=== PATIENT | female | born 1940 | race Caucasian/White ===

== ENCOUNTER → 2017-05-27 | Day surgery (SDC) | payer OTHER | END | disposition home or self-care (01) | LOC: ADM 05-20 11:45 → AMB-ENDOS 06:15 | DX: K57.32 Diverticulitis of large intestine without perforation or abscess without bleeding (principal) ==

== ENCOUNTER 2019-12-06 14:00 | Emergency (ER) | payer OTHER ==
[~2019-12-06] VITALS: Ht 165.1 cm; Wt 78.0 kg
[2019-12-06] MEDS ORDERED: AZELASTINE137 MCG/0. NASAL (14:18)
[2019-12-06] MEDS ORDERED: GABAPENTIN100 M2 PO (14:18)
[2019-12-06] MEDS ORDERED: FLONASE16 GM NS (14:18)
[2019-12-06] MEDS ORDERED: FAMOTIDINE20 MG PO (14:18)
[2019-12-06] MEDS ORDERED: PANTOPRAZOLE SO40 MG PO (14:19)
[2019-12-06] MEDS ORDERED: CANDESARTAN-HC1 EAC2 PO (14:19)
[2019-12-06] MEDS ORDERED: APETIGEN-PLUS1 EACH PO (21:58)
[2019-12-06] MEDS ORDERED: ENZYME DIGEST1 EACH PO (21:58)
[2019-12-06] MEDS ORDERED: PEPCID AC20 MG PO (21:58)
[2019-12-06] MEDS ORDERED: MOTION RELIEF25 MG PO (21:58)
== END 2019-12-06 22:21 ==
LOC: ER 14:00
DX: H81.13 Benign paroxysmal vertigo, bilateral (principal); R00.2 Palpitations; R06.02 Shortness of breath; Z03.818 Encounter for observation for suspected exposure to other biological agents ruled out

== ENCOUNTER 2024-02-11 06:36 | Emergency (ER) | payer OTHER ==
[~2024-02-11] VITALS: Ht 152.4 cm; Wt 72.6 kg
[~2024-02-11 06:36] MED LIST: APETIGEN-PLUS1 EACH PO; AZELASTINE137 MCG/0. NASAL; CANDESARTAN-HC1 EAC2 PO; ENZYME DIGEST1 EACH PO; FAMOTIDINE20 MG PO; FLONASE16 GM NS; GABAPENTIN100 M2 PO; MOTION RELIEF25 MG PO; PANTOPRAZOLE SO40 MG PO; PEPCID AC20 MG PO
== END 2024-02-11 12:07 ==
LOC: ER 06:38
DX: R51.9 Headache, unspecified (principal); H40.89 Other specified glaucoma; Z88.0 Allergy status to penicillin; I10 Essential (primary) hypertension; K57.30 Diverticulosis of large intestine without perforation or abscess without bleeding

== ENCOUNTER 2024-08-23 12:15 | Outpatient (CLI) | payer OTHER | END 2024-08-23 12:19 | disposition home or self-care (01) | LOC: SONOGRAMA 12:15 | DX: M25.561 Pain in right knee (principal) ==

== ENCOUNTER → 2024-08-28 07:48 | Outpatient (CLI) | payer OTHER | END | disposition home or self-care (01) | LOC: NUCLEAR 07:48 | DX: I82.409 Acute embolism and thrombosis of unspecified deep veins of unspecified lower extremity (principal); I87.2 Venous insufficiency (chronic) (peripheral) ==

== ENCOUNTER → 2024-08-29 07:56 | Outpatient (CLI) | payer OTHER | END | disposition home or self-care (01) | LOC: NUCLEAR 07:56 | DX: I82.409 Acute embolism and thrombosis of unspecified deep veins of unspecified lower extremity (principal); I87.2 Venous insufficiency (chronic) (peripheral) ==